=== PATIENT | male | born 1950 | race Caucasian/White ===

== ENCOUNTER 2017-05-08 07:24 | Emergency (ER) | payer OTHER ==
[~2017-05-08] VITALS: Ht 170.2 cm; Wt 93.0 kg
[~2017-05-08 07:24] MED LIST: GLIPIZIDE; MORPHINE; diovan
[2017-05-08 10:03] VITALS: BP 131/65
== END 2017-05-08 10:10 | disposition home or self-care (01) ==
LOC: ER 08:22
DX: I10 Essential (primary) hypertension (principal); E11.9 Type 2 diabetes mellitus without complications
CPT/HCPCS: 99283; Z7610